=== PATIENT | female | born 1965 | race Caucasian/White ===

== ENCOUNTER → 2017-03-14 | Outpatient (REF) | payer OTHER ==
[2017-03-14 13:05] LABS: POTASSIUM SERUM 4.1 MEQ/L (3.5-5.1)
== END ==
LOC: M LAB REF 12:20
PROVIDERS: ATTEND Nurse Practitioner Family
DX: L70.0 Acne vulgaris (principal)

== ENCOUNTER → 2018-09-21 | Outpatient (CLI) | payer BC | LOC: M WHC 09:52 | DX: Z12.31 Encounter for screening mammogram for malignant neoplasm of breast (principal) | CPT/HCPCS: 77067 ==

== ENCOUNTER → 2018-09-21 | Outpatient (REF) | payer BC ==
[2018-09-23 14:49] LABS: HPV HYBRID CAPTURE II Negative (Negative)
== END ==
LOC: M SFHCWAGY 10:26
DX: Z12.4 Encounter for screening for malignant neoplasm of cervix (principal)
CPT/HCPCS: G0123

== ENCOUNTER → 2019-01-20 | Outpatient (REF) | payer BC | LOC: M SFHCPLAZ 17:31 | PROVIDERS: ATTEND Dermatology | DX: D48.5 Neoplasm of uncertain behavior of skin (principal) ==

== ENCOUNTER → 2019-06-23 | Outpatient (REF) | payer BC ==
[2019-06-23 12:56] LABS: BASO # 0.1 10^3/uL (0.0-0.2); BASO % 0.9 % (0.0-1.0); EOS # 0.1 10^3/uL (0.0-0.50); EOS % 1.8 % (0.0-3.0); HEMOGLOBIN 15.4 g/dl (12.0-15.5); LYMPH # 1.4 10^3/uL (1.5-4.5); LYMPH % 25.3 % (24.0-44.0); MEAN CORPUSCULAR HEMOGLOBIN 34.1 pg (27.0-33.0); MEAN CORPUSCULAR HGB CONC 33.5 g/dl (32.0-36.5); MONO # 0.7 10^3/uL (0.0-0.8); MONO % 11.7 % (0.0-5.0); NEUTROPHILS # 3.4 10^3/uL (1.8-7.7); NEUTROPHILS % 59.9 % (36.0-66.0); PLATELET COUNT, AUTOMATED 235 10^3/uL (150-450); RED BLOOD COUNT 4.51 10^6/uL (4.00-5.40); WHITE BLOOD COUNT 5.7 10^3/uL (4.0-10.0)
[2019-06-23 13:17] LABS: ALBUMIN 3.8 GM/DL (3.2-5.2); BILIRUBIN,TOTAL 0.7 MG/DL (0.2-1.0); CALCIUM LEVEL 9.5 MG/DL (8.5-10.1); CHOLESTEROL RISK RATIO 6.589 (<5); CREATININE FOR GFR 1.1 MG/DL (0.55-1.30); GLOMERULAR FILTRATION RATE 54.9 (>51); POTASSIUM SERUM 4.5 MEQ/L (3.5-5.1); THYROID STIMULATING HORMONE 3.11 uIU/ML (0.358-3.740); TOTAL PROTEIN 6.9 GM/DL (6.4-8.2)
== END ==
LOC: M SFHCADAM 08:02
PROVIDERS: ATTEND Physician Assistant Medical
DX: Z13.0 Encounter for screening for diseases of the blood and blood-forming organs and certain disorders involving the immune mechanism (principal); Z13.220 Encounter for screening for lipoid disorders

== ENCOUNTER → 2019-07-30 | Outpatient (REF) | payer BC ==
[2019-07-30 19:54] LABS: FERRITIN 706 NG/ML (8-252); IRON (FE) 182 UG/DL (50-170); PERCENT SATURATION 44.8 % (13.2-45.0); TOTAL IRON BINDING CAPACITY 406 UG/DL (250-450)
[2019-07-30 20:38] LABS: HEMOGLOBIN A1c 5.6 %
[2019-08-02 10:39] LABS: HEPATITIS B SURFACE ANTIGEN NEGATIVE (NEGATIVE)
[2019-08-02 11:06] LABS: HEPATITIS B CORE ANTIBODY IGM NEGATIVE (NEGATIVE)
[2019-08-02 11:09] LABS: HEPATITIS A ANTIBODY IGM NEGATIVE (NEGATIVE)
== END ==
LOC: M SFHCADAM 14:23
PROVIDERS: ATTEND Physician Assistant Medical
DX: R94.5 Abnormal results of liver function studies (principal); D75.89 Other specified diseases of blood and blood-forming organs; R73.01 Impaired fasting glucose

== ENCOUNTER → 2019-08-06 | Outpatient (CLI) | payer BC ==
--- NOTE | 2019-08-06 08:31 | REP ---
Abdominal right upper quadrant ultrasound for elevated liver function tests: There are no comparisons. There is no cholelithiasis, gallbladder wall thickening or pericholecystic fluid. There is no dilatation of the intrahepatic or extrahepatic biliary ducts. The common biliary duct measures 5.4 mm in diameter. The hepatic parenchyma is homogeneous but hyperechoic compatible with steatosis. There are no hepatic masses. The visualized areas of the pancreas are unremarkable. The right kidney measures 10.3 x 6.2 x 4.7 cm and is in the low normal size range. There is no right renal hydronephrosis, calculus, mass or cyst. The abdominal aorta is unremarkable. There is no right upper quadrant ascites. Impression: Hepatic steatosis. No hepatic masses. No ascites. Otherwise, negative abdominal right upper quadrant ultrasound. Electronically Signed by Amadou Hall MD 08/06/2019 08:21 A
== END ==
LOC: M RAD 07:42
PROVIDERS: ATTEND Physician Assistant Medical
DX: R94.5 Abnormal results of liver function studies (principal); I10 Essential (primary) hypertension

== ENCOUNTER → 2019-09-22 | Outpatient (CLI) | payer BC ==
--- NOTE | 2019-09-22 14:55 | REPMRS ---
Patient History The patient states she had a clinical breast exam in 09/2019. Patient is postmenopausal. Family history of colorectal cancer at age 50 or over in mother. Benign radio exam breast specimen, April 24, 2015. Benign localization of breast nodule of the right breast, April 24, 2015. No Hormone Replacement Therapy Digital Woman Screen Mammo: September 22, 2019 - Exam #: [id number] Bilateral CC and MLO view(s) were taken. Technologist: Betzy Verduzco, Technologist Prior study comparison: September 21, 2018, bilateral digital woman screen mammo performed at [facility]. September 19, 2017, digital woman screen mammo performed at [facility]. April 25, 2016, digital woman screen mammo performed at [facility]. FINDINGS: There are scattered fibroglandular densities. There has been no change in the appearance of the mammogram from the prior studies. There is a mild amount of scattered fibroglandular density which is fairly symmetric. There is no interval development of dominant mass, architectural distortion, or grouped microcalcification suggestive of malignancy. 3-D tomosynthesis shows no additional findings. Assessment: BI-RADS/ACR category 1 mammogram. Negative Mammogram. Recommendation Routine screening mammogram of both breasts in 1 year (for women over age 40). This patient's Lifetime Breast Cancer Risk is estimated at 9.0 %. This mammogram was interpreted with the aid of an FDA-approved computer-aided dectection system. Electronically Signed By: Kang Camejo MD 09/22/19 [id number]
== END ==
LOC: M WHC 10:59
PROVIDERS: ATTEND Nurse Practitioner Family
DX: Z12.31 Encounter for screening mammogram for malignant neoplasm of breast (principal); Z78.0 Asymptomatic menopausal state; Z80.0 Family history of malignant neoplasm of digestive organs

== ENCOUNTER → 2020-09-01 | Outpatient (CLI) | payer BC ==
[~2020-09-01] MED LIST: LISI-542; PARO5TAB; PRIL20TA2 PO; SPIR50TA4
== END ==
LOC: M LABSMTC 10:34
PROVIDERS: ATTEND Anesthesiology
DX: Z01.812 Encounter for preprocedural laboratory examination (principal); Z20.828 Contact with and (suspected) exposure to other viral communicable diseases
CPT/HCPCS: C9803; U0003

== ENCOUNTER 2020-09-06 08:06 | Day surgery (SDC) | payer BC ==
[~2020-09-06] VITALS: Ht 152.4 cm; Wt 68.9 kg
[~2020-09-06 08:06] MED LIST changes: +NS 1,000 ML IV ONE
[2020-09-06] MEDS ORDERED: propofoL 500 MG/50 ML VIAL As Ordered ONE (09:03)
[2020-09-06] MEDS ORDERED: LIDOCAINE 2% 100MG/5ML SDV (FOR ANES.) As Ordered ONE (09:03)
--- NOTE | 2020-09-06 09:25 | ROOR ---
Patient Name: Mehnaz Johnson Procedure Date: 09/06/2020 8:56 AM Date of : 1965 Age: 55 Room: OP02 Gender: Female Note Status: Finalized Procedure: Total Colonoscopy to Cecum + Biopsy Polypectomy Indications: Screening for colorectal malignant neoplasm Providers: Doron Gatica MD Referring MD: Александр Valdez Requesting Provider: Medicines: Monitored Anesthesia Care Complications: No immediate complications. Procedure: Pre-Anesthesia Assessment: - The heart rate, respiratory rate, oxygen saturations, blood pressure, adequacy of pulmonary ventilation, and response to care were monitored throughout the procedure. The Colonoscope was introduced through the anus and advanced to the cecum, identified by appendiceal orifice and ileocecal valve. The colonoscopy was performed without difficulty. The patient tolerated the procedure well. The quality of the bowel preparation was excellent. Findings: The perianal and digital rectal examinations were normal. Non-bleeding internal hemorrhoids were found during retroflexion. The hemorrhoids were small and Grade I (internal hemorrhoids that do not prolapse). Scattered small-mouthed diverticula were found in the recto-sigmoid colon, sigmoid colon and descending colon. A diminutive polyp was found in the rectum. The polyp was flat. The polyp was removed with a cold biopsy forceps. Resection and retrieval were complete. The exam was otherwise without abnormality on direct and retroflexion views. The terminal ileum appeared normal. Impression: - Non-bleeding internal hemorrhoids. - Diverticulosis in the recto-sigmoid colon, in the sigmoid colon and in the descending colon. - One diminutive polyp in the rectum, removed with a cold biopsy forceps. Resected and retrieved. - The examination was otherwise normal on direct and retroflexion views. - The examined portion of the ileum was normal. - The exam was otherwise normal to the cecum. Recommendation: - Patient has a contact number available for emergencies. The signs and symptoms of potential delayed complications were discussed with the patient. Return to normal activities tomorrow. Written discharge instructions were provided to the patient. - High fiber diet. - Discharge patient to home. - Continue present medications. - Await pathology results. - Telephone GI clinic for pathology results in 1 week. - Repeat colonoscopy in 10 years for screening purposes. - Return to referring physician. - The findings and recommendations were discussed with the patient. Doron Gatica MD Doron Gatica MD 09/06/2020 9:24:55 AM Electronically signed by Doron Gatica MD Number of Addenda: 0 Note Initiated On: 09/06/2020 8:56 AM Estimated Blood Loss: Estimated blood loss: none.
[2020-09-06 09:49] VITALS: BP 134/78
== END 2020-09-06 09:52 | disposition home or self-care (01) ==
LOC: M OPP 08:06
PROVIDERS: ATTEND Internal Medicine Gastroenterology
DX: Z12.11 Encounter for screening for malignant neoplasm of colon (principal); K64.0 First degree hemorrhoids; K57.90 Diverticulosis of intestine, part unspecified, without perforation or abscess without bleeding; K62.1 Rectal polyp

== ENCOUNTER → 2020-09-07 | Outpatient (CLI) | payer BC ==
[~2020-09-07] MED LIST changes: -NS 1,000 ML IV ONE
--- NOTE | 2020-09-08 08:15 | ECGEPIP ---
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
== END ==
LOC: M EKG 10:11
PROVIDERS: ATTEND Orthopaedic Surgery
DX: Z11.59 Encounter for screening for other viral diseases (principal)

== ENCOUNTER → 2020-09-09 | Outpatient (CLI) | payer BC | LOC: M LABSMTC 09:16 | PROVIDERS: ATTEND Orthopaedic Surgery | DX: Z01.812 Encounter for preprocedural laboratory examination (principal); Z20.828 Contact with and (suspected) exposure to other viral communicable diseases ==

== ENCOUNTER → 2020-09-27 | Outpatient (CLI) | payer BC ==
--- NOTE | 2020-09-27 12:25 | REPMRS ---
Patient History The patient states she had a clinical breast exam in 2019. Patient is postmenopausal and is nulliparous. Family history of colorectal cancer at age 50 or over in mother. Benign radio exam breast specimen, April 24, 2015. Benign localization of breast nodule of the right breast, April 24, 2015. No Hormone Replacement Therapy Digital Woman Screen Mammo: September 27, 2020 - Exam #: [id number] Bilateral CC and MLO view(s) were taken. Technologist: Romy Lr, Technologist Prior study comparison: September 22, 2019, bilateral digital woman screen mammo performed at [facility]. September 21, 2018, bilateral digital woman screen mammo performed at [facility]. September 19, 2017, digital woman screen mammo performed at [facility]. FINDINGS: The breast tissue is almost entirely fat. The Volpara volumetric breast density category is: A. There has been no change in the appearance of the mammogram from the prior studies. There is no interval development of dominant mass, architectural distortion, or grouped microcalcification typical of malignancy. 3-D tomosynthesis shows no additional findings. Assessment: BI-RADS/ACR category 1 mammogram. Negative Mammogram. Recommendation Routine screening mammogram of both breasts in 1 year (for women over age 40). This patient's Lifetime Breast Cancer RIsk is estimated at 10.7 %. This mammogram was interpreted with the aid of an FDA-approved computer-aided dectection system. Electronically Signed By: Kang Camejo MD 09/27/20 [id number]
== END ==
LOC: M WHC 11:05
PROVIDERS: ATTEND Nurse Practitioner Family
DX: Z12.31 Encounter for screening mammogram for malignant neoplasm of breast (principal)

== ENCOUNTER → 2020-10-14 | Outpatient (CLI) | payer BC | LOC: M LABSMTC 10:56 | PROVIDERS: ATTEND Orthopaedic Surgery | DX: Z20.828 Contact with and (suspected) exposure to other viral communicable diseases (principal) ==

== ENCOUNTER → 2021-10-23 | Outpatient (CLI) | payer BC ==
[~2021-10-23] MED LIST changes: -LISI-542; +LISI-898
--- NOTE | 2021-10-23 15:37 | REPMRS ---
Patient History The patient states she has not had a clinical breast exam in over a year. Patient is postmenopausal and is nulliparous. Family history of colorectal cancer at age 50 or over in mother, prostate cancer at age 64 in brother. Benign radio exam breast specimen, April 24, 2015. Benign localization of breast nodule of the right breast, April 24, 2015. No Hormone Replacement Therapy Patient states no breast complaints today. Patient has signed MRS History Sheet. Digital Woman Screen Mammo: October 23, 2021 - Exam #: [id number] Bilateral CC and MLO view(s) were taken. Technologist: RT Davon Prior study comparison: September 27, 2020, bilateral digital woman screen mammo performed at [facility]. September 22, 2019, bilateral digital woman screen mammo performed at [facility]. FINDINGS: There are scattered fibroglandular densities. Screening. Digital screening (2D) mammography was performed bilaterally in the CC and MLO projections. Additionally, breast tomosynthesis (3D mammography) was performed bilaterally in the CC and MLO projections. Todays exam was compared to the prior exam/exams. By history, the patient has no complaints of a palpable breast abnormality or other significant breast complaints. The Volpara volumetric breast density category is B, there are scattered areas of fibroglandular densities. The breasts are unchanged in size and shape. There are no vibha-soft tissue densities or spiculated masses. There is no internal architectural distortion. There are no suspicious vibha-calcific clusters. Skin thickening or nipple retraction is not present. IMPRESSION: BI-RADS Category 2- Benign Findings. There is no evidence of malignant alteration of the breasts. Followup examination recommended in one year. This mammogram was read with the assistance of [facility],an FDA approved computer aided detection system for mammography. The lifetime Tyrer-Cuzick score is 10.4% Negative x-ray reports should not delay surgical consultation if a dominant or clinically suspicious mass is present. Not all breast cancers can be identified by mammography. Therefore, we recommend that you continue to perform regular breast self-examination and physical examination and then promptly contact your physician of any concerns or changes. Adenosis and dense breasts may obscure an underlying neoplasm. No significant changes when compared with prior studies. Assessment: BI-RADS/ACR category 2 mammogram. Benign Findings. Recommendation Routine screening mammogram of both breasts in 1 year. Electronically Signed By: Dany Bowden MD 10/23/21 0357
== END ==
LOC: M WHC 13:10
PROVIDERS: ATTEND Nurse Practitioner Women's Health
DX: Z12.31 Encounter for screening mammogram for malignant neoplasm of breast (principal); Z80.0 Family history of malignant neoplasm of digestive organs; Z80.42 Family history of malignant neoplasm of prostate

== ENCOUNTER → 2021-11-01 | Outpatient (REF) | payer BC ==
[~2021-11-01] MED LIST changes: -LISI-898; +LISI5TAB11
== END ==
LOC: M SFHCWAGY 17:33
PROVIDERS: ATTEND Nurse Practitioner Women's Health
DX: Z12.4 Encounter for screening for malignant neoplasm of cervix (principal); N92.5 Other specified irregular menstruation
CPT/HCPCS: 87624; G0123

== ENCOUNTER → 2023-02-24 | Outpatient (CLI) | payer BC, MEDICAID, OTHER | LOC: M WHC 07:23 | PROVIDERS: ATTEND Nurse Practitioner Family | DX: Z12.31 Encounter for screening mammogram for malignant neoplasm of breast (principal) ==

== ENCOUNTER → 2023-02-24 | Outpatient (REF) | payer MEDICAID, OTHER | LOC: M SFHCWAGY 12:52 | PROVIDERS: ATTEND Nurse Practitioner Family | DX: Z12.4 Encounter for screening for malignant neoplasm of cervix (principal); N95.2 Postmenopausal atrophic vaginitis ==

== ENCOUNTER → 2023-02-27 | Outpatient (REF) | payer MEDICAID, OTHER | LOC: M PLALAB 17:16 | PROVIDERS: ATTEND Nurse Practitioner Family | DX: L29.2 Pruritus vulvae (principal); L57.0 Actinic keratosis ==

== ENCOUNTER → 2023-02-27 | Outpatient (REF) | payer MEDICAID | LOC: M SFHCWAGY 10:31 | PROVIDERS: ATTEND Nurse Practitioner Family | DX: L29.2 Pruritus vulvae (principal); Z53.9 Procedure and treatment not carried out, unspecified reason ==

== ENCOUNTER → 2024-02-12 | Outpatient (CLI) | payer OTHER ==
[~2024-02-12] MED LIST changes: +PROHANCE 279.3MG/ML 15ML VIAL ONE; +SIMV40TA20 PO
== END ==
LOC: M PLAIMG 09:23
PROVIDERS: ATTEND Nurse Practitioner Family
DX: M25.551 Pain in right hip (principal); M87.051 Idiopathic aseptic necrosis of right femur; M87.052 Idiopathic aseptic necrosis of left femur
CPT/HCPCS: 73723; A9576

== ENCOUNTER → 2024-02-23 | Outpatient (REF) | payer OTHER, MEDICAID ==
[~2024-02-23] MED LIST changes: -PROHANCE 279.3MG/ML 15ML VIAL ONE
[2024-02-23 12:37] LABS: BASO # 0.1 10^3/uL (0.0-0.2); BASO % 0.9 % (0.0-1.0); EOS # 0.2 10^3/uL (0.0-0.5); EOS % 2.6 % (0.0-3.0); HEMATOCRIT 43.3 % (36.0-47.0); HEMOGLOBIN 14.4 g/dl (12.0-15.5); LYMPH # 2.1 10^3/uL (1.5-5.0); LYMPH % 31.1 % (24.0-44.0); MEAN CORPUSCULAR HEMOGLOBIN 33.8 pg (27.0-33.0); MEAN CORPUSCULAR HGB CONC 33.3 g/dl (32.0-36.5); MEAN CORPUSCULAR VOLUME 101.6 fl (80.0-96.0); MONO # 0.5 10^3/uL (0.0-0.8); NEUTROPHILS # 3.8 10^3/uL (1.5-8.5); NEUTROPHILS % 57.2 % (36.0-66.0); PLATELET COUNT, AUTOMATED 261 10^3/uL (150-450); RED BLOOD COUNT 4.26 10^6/uL (4.00-5.40); WHITE BLOOD COUNT 6.6 10^3/uL (4.0-10.0)
[2024-02-23 13:02] LABS: HEMOGLOBIN A1c 4.8 % (4.0-6.0)
[2024-02-23 13:07] LABS: ALBUMIN 3.6 G/DL (3.2-5.2); ALKALINE PHOSPHATASE 72 U/L (46-116); ALT/SGPT 29 U/L (7.0-40); AST/SGOT 32 U/L (<34); BILIRUBIN,TOTAL 1.1 MG/DL (0.3-1.2); BLOOD UREA NITROGEN 16 MG/DL (9-23); CALCIUM LEVEL 9.7 MG/DL (8.3-10.6); CARBON DIOXIDE LEVEL 30 MMOL/L (20-31); CHLORIDE LEVEL 101 MMOL/L (98-107); CHOLESTEROL LEVEL 186 MG/DL (<200); CHOLESTEROL RISK RATIO 2.21 (<5); GLOMERULAR FILTRATION RATE > 60.0 (>45); GLUCOSE, FASTING 97 MG/DL (74-106); LDL CHOLESTEROL 52.4 MG/DL (<100); POTASSIUM SERUM 4.4 MMOL/L (3.5-5.1); SODIUM LEVEL 141 MMOL/L (136-145); TOTAL PROTEIN 6.5 G/DL (5.7-8.2); TRIGLYCERIDES LEVEL 248 MG/DL (<150)
== END ==
LOC: M LABDRWAD 12:23
PROVIDERS: ATTEND Nurse Practitioner Family
DX: E78.00 Pure hypercholesterolemia, unspecified (principal)

== ENCOUNTER → 2024-03-09 | Outpatient (REF) | payer OTHER, MEDICAID ==
[2024-03-09 14:02] LABS: BASO # 0.1 10^3/uL (0.0-0.2); EOS # 0.1 10^3/uL (0.0-0.5); EOS % 1.8 % (0.0-3.0); HEMATOCRIT 42.4 % (36.0-47.0); HEMOGLOBIN 14.4 g/dl (12.0-15.5); LYMPH # 1.7 10^3/uL (1.5-5.0); LYMPH % 22.3 % (24.0-44.0); MEAN CORPUSCULAR HEMOGLOBIN 34.6 pg (27.0-33.0); MEAN CORPUSCULAR VOLUME 101.9 fl (80.0-96.0); MONO # 0.7 10^3/uL (0.0-0.8); MONO % 8.9 % (2.0-8.0); NEUTROPHILS # 5.1 10^3/uL (1.5-8.5); NEUTROPHILS % 65.9 % (36.0-66.0); PLATELET COUNT, AUTOMATED 336 10^3/uL (150-450); RED BLOOD COUNT 4.16 10^6/uL (4.00-5.40); WHITE BLOOD COUNT 7.8 10^3/uL (4.0-10.0)
[2024-03-09 14:04] LABS: ALBUMIN 4.1 G/DL (3.2-5.2)
[2024-03-09 14:09] LABS: FERRITIN 147.9 NG/ML (7.3-270.7)
[2024-03-09 14:11] LABS: PERCENT SATURATION 34.6 % (13.2-45.0)
== END ==
LOC: M LABDRWAD 13:00
PROVIDERS: ATTEND Orthopaedic Surgery
DX: M16.9 Osteoarthritis of hip, unspecified (principal); M25.551 Pain in right hip

== ENCOUNTER → 2024-03-17 | Outpatient (CLI) | payer OTHER ==
[2024-03-17 14:56] LABS: BASO # 0.1 10^3/uL (0.0-0.2); BASO % 0.6 % (0.0-1.0); EOS # 0.1 10^3/uL (0.0-0.5); EOS % 1.1 % (0.0-3.0); HEMATOCRIT 40.7 % (36.0-47.0); HEMOGLOBIN 13.5 g/dl (12.0-15.5); LYMPH # 1.6 10^3/uL (1.5-5.0); MEAN CORPUSCULAR HEMOGLOBIN 33.3 pg (27.0-33.0); MEAN CORPUSCULAR HGB CONC 33.2 g/dl (32.0-36.5); MEAN CORPUSCULAR VOLUME 100.2 fl (80.0-96.0); MONO # 0.6 10^3/uL (0.0-0.8); MONO % 7.3 % (2.0-8.0); NEUTROPHILS # 5.8 10^3/uL (1.5-8.5); PLATELET COUNT, AUTOMATED 285 10^3/uL (150-450); RED BLOOD COUNT 4.06 10^6/uL (4.00-5.40); WHITE BLOOD COUNT 8.2 10^3/uL (4.0-10.0)
[2024-03-17 15:06] LABS: INR 0.98; PARTIAL THROMBOPLASTIN TIME 23.5 SECONDS (24.8-34.2); PROTHROMBIN TIME 12.7 SECONDS (12.5-14.5)
[2024-03-17 15:23] LABS: ALBUMIN 3.9 G/DL (3.2-5.2); ALKALINE PHOSPHATASE 80 U/L (46-116); ALT/SGPT 30 U/L (7.0-40); AST/SGOT 27 U/L (<34); BILIRUBIN,TOTAL 0.9 MG/DL (0.3-1.2); BLOOD UREA NITROGEN 15 MG/DL (9-23); CALCIUM LEVEL 9.7 MG/DL (8.3-10.6); CARBON DIOXIDE LEVEL 26 MMOL/L (20-31); CHLORIDE LEVEL 97 MMOL/L (98-107); CREATININE FOR GFR 0.84 MG/DL (0.55-1.30); GLOMERULAR FILTRATION RATE > 60.0 (>45); GLUCOSE, FASTING 86 MG/DL (74-106); SODIUM LEVEL 135 MMOL/L (136-145); TOTAL PROTEIN 6.6 G/DL (5.7-8.2)
== END ==
LOC: M EKG 13:28
PROVIDERS: ATTEND Nurse Practitioner Family
DX: M87.059 Idiopathic aseptic necrosis of unspecified femur (principal)

== ENCOUNTER → 2024-03-22 | Outpatient (CLI) | payer OTHER | LOC: M WHC 08:12 | PROVIDERS: ATTEND Nurse Practitioner Family | DX: Z12.31 Encounter for screening mammogram for malignant neoplasm of breast (principal) ==

== ENCOUNTER → 2024-09-01 | Outpatient (REF) | payer OTHER ==
[2024-09-01 16:04] LABS: BASO % 0.7 % (0.0-1.0); EOS # 0.1 10^3/uL (0.0-0.5); EOS % 1.8 % (0.0-3.0); HEMATOCRIT 41.5 % (36.0-47.0); HEMOGLOBIN 13.6 g/dl (12.0-15.5); LYMPH # 1.4 10^3/uL (1.5-5.0); LYMPH % 25.5 % (24.0-44.0); MEAN CORPUSCULAR HEMOGLOBIN 32.7 pg (27.0-33.0); MEAN CORPUSCULAR HGB CONC 32.8 g/dl (32.0-36.5); MEAN CORPUSCULAR VOLUME 99.8 fl (80.0-96.0); MONO # 0.5 10^3/uL (0.0-0.8); MONO % 9.3 % (2.0-8.0); NEUTROPHILS # 3.4 10^3/uL (1.5-8.5); NEUTROPHILS % 62.3 % (36.0-66.0); PLATELET COUNT, AUTOMATED 252 10^3/uL (150-450); RED BLOOD COUNT 4.16 10^6/uL (4.00-5.40); WHITE BLOOD COUNT 5.5 10^3/uL (4.0-10.0)
[2024-09-01 16:23] LABS: ALBUMIN 3.6 G/DL (3.2-5.2); ALKALINE PHOSPHATASE 77 U/L (46-116); ALT/SGPT 32 U/L (7.0-40); AST/SGOT 35 U/L (<34); BILIRUBIN,TOTAL 1.2 MG/DL (0.3-1.2); BLOOD UREA NITROGEN 16 MG/DL (9-23); CALCIUM LEVEL 9.5 MG/DL (8.3-10.6); CARBON DIOXIDE LEVEL 28 MMOL/L (20-31); CHLORIDE LEVEL 106 MMOL/L (98-107); CHOLESTEROL LEVEL 187 MG/DL (<200); CHOLESTEROL RISK RATIO 2.94 (<5); CREATININE FOR GFR 0.88 MG/DL (0.55-1.30); GLOMERULAR FILTRATION RATE > 60.0 (>45); GLUCOSE, FASTING 96 MG/DL (74-106); HDL CHOLESTEROL 63.6 MG/DL (>40); LDL CHOLESTEROL 73.4 MG/DL (<100); NON-HDL-C 123.4 MG/DL; POTASSIUM SERUM 4.6 MMOL/L (3.5-5.1); SODIUM LEVEL 140 MMOL/L (136-145); TOTAL PROTEIN 6.7 G/DL (5.7-8.2); TRIGLYCERIDES LEVEL 250 MG/DL (<150)
[2024-09-01 16:29] LABS: HEMOGLOBIN A1c 5.3 % (4.0-6.0)
== END ==
LOC: M LABDRWAD 12:47
PROVIDERS: ATTEND Nurse Practitioner Family
DX: Z00.00 Encounter for general adult medical examination without abnormal findings (principal)

== ENCOUNTER → 2025-03-07 | Outpatient (REF) | payer OTHER ==
[2025-03-07 13:36] LABS: BASO % 0.8 % (0.0-1.0); EOS # 0.1 10^3/uL (0.0-0.5); EOS % 1.6 % (0.0-3.0); HEMATOCRIT 36.9 % (36.0-47.0); LYMPH # 1.2 10^3/uL (1.5-5.0); LYMPH % 23.9 % (24.0-44.0); MEAN CORPUSCULAR HEMOGLOBIN 33.6 pg (27.0-33.0); MEAN CORPUSCULAR HGB CONC 32.5 g/dl (32.0-36.5); MEAN CORPUSCULAR VOLUME 103.4 fl (80.0-96.0); MONO # 0.5 10^3/uL (0.0-0.8); MONO % 9.7 % (2.0-8.0); NEUTROPHILS # 3.2 10^3/uL (1.5-8.5); NEUTROPHILS % 63.6 % (36.0-66.0); PLATELET COUNT, AUTOMATED 284 10^3/uL (150-450); RED BLOOD COUNT 3.57 10^6/uL (4.00-5.40); WHITE BLOOD COUNT 5.1 10^3/uL (4.0-10.0)
[2025-03-07 14:08] LABS: ALBUMIN 3.3 G/DL (3.2-5.2); BILIRUBIN,TOTAL 0.7 MG/DL (0.3-1.2); CALCIUM LEVEL 9.1 MG/DL (8.3-10.6); CREATININE FOR GFR 0.84 MG/DL (0.55-1.30); TOTAL PROTEIN 6.1 G/DL (5.7-8.2)
[2025-03-07 14:09] LABS: FREE THYROXINE INDEX 1.7 % (1.3-4.8); T UPTAKE 36.5 % (22.5-37.0); THYROID STIMULATING HORMONE 1.354 uIU/ML (0.55-4.78); THYROXINE (T4) 4.6 UG/DL (4.5-10.9)
== END ==
LOC: M LABDRWAD 12:45
PROVIDERS: ATTEND Nurse Practitioner Family
DX: R53.83 Other fatigue (principal); E78.00 Pure hypercholesterolemia, unspecified

== ENCOUNTER → 2025-03-29 | Outpatient (CLI) | payer OTHER | LOC: M WHC 10:45 | PROVIDERS: ATTEND Nurse Practitioner Family | DX: Z12.31 Encounter for screening mammogram for malignant neoplasm of breast (principal) ==

== ENCOUNTER → 2025-03-29 | Outpatient (REF) | payer OTHER ==
[2025-03-31 15:04] LABS: HPV APTIMA Not Detected (Not Detected)
== END ==
LOC: M SFHCWAGY 13:18
PROVIDERS: ATTEND Nurse Practitioner Family
DX: Z12.4 Encounter for screening for malignant neoplasm of cervix (principal); N95.2 Postmenopausal atrophic vaginitis

== ENCOUNTER 2025-07-23 16:48 | Observation (INO) | payer OTHER ==
[~2025-07-23] VITALS: Ht 152.4 cm; Wt 67.5 kg
[~2025-07-23 16:48] MED LIST changes: -LISI5TAB11; +LISI5TAB11 PO; -PARO5TAB; +PARO5TAB PO
[2025-07-23] MEDS ORDERED: ESTR0.1C5 VG (16:58)
[2025-07-23] MEDS: ONDANSETRON 4MG 2ML VIAL IV ONE (17:28)
[2025-07-23] MEDS: NS (Normal Saline) 0.9% 1,000 ML IV ONE (17:28)
[2025-07-23] MEDS: KETOROLAC 30 MG/ML 1 ML VIAL IV ONE (17:28)
[2025-07-23 17:38] LABS: BASO # 0.0 10^3/uL (0.0-0.2); BASO % 0.3 % (0.0-1.0); EOS # 0.1 10^3/uL (0.0-0.5); EOS % 0.5 % (0.0-3.0); LYMPH # 1.1 10^3/uL (1.5-5.0); LYMPH % 9.1 % (24.0-44.0); MONO # 0.8 10^3/uL (0.0-0.8); MONO % 6.8 % (2.0-8.0); NEUTROPHILS # 9.6 10^3/uL (1.5-8.5); NEUTROPHILS % 82.9 % (36.0-66.0); PLATELET COUNT, AUTOMATED 298 10^3/uL (150-450)
[2025-07-23] MEDS ORDERED: ISOVUE-370 76% 100 ML VIAL As Ordered ONE (17:38)
[2025-07-23 17:47] LABS: ALT/SGPT 18.0 U/L (7.0-40); AST/SGOT 24.0 U/L (<34)
[2025-07-23 18:02] LABS: KETONE, URINE AUTO RFX TRACE mg/dL (NEGATIVE); LEUKOCYTE ESTERASE UR AUTO RFX NEGATIVE (NEGATIVE); MUCUS, URINE RFX SMALL (NEGATIVE); NITRITE, URINE AUTO RFX NEGATIVE (NEGATIVE); RBC, URINE AUTO RFX 0 /HPF (0-3); SQUAM EPITHELIAL CELL UR AURFX 5 /HPF (0-6); WBC, URINE AUTO RFX 1 /HPF (0-3)
[2025-07-23] MEDS: LR 1,000 ML IV SCH (18:55)
[2025-07-23 19:05] LABS: TRIGLYCERIDES LEVEL 274.0 MG/DL (<150)
[2025-07-23 19:23] LABS: CALCIUM LEVEL 10.2 MG/DL (8.3-10.6); CARBON DIOXIDE LEVEL 25.0 MMOL/L (20-31); CHLORIDE LEVEL 99.0 MMOL/L (98-107); CREATININE FOR GFR 0.81 MG/DL (0.55-1.30); GLOMERULAR FILTRATION RATE 82.5 (>45); POTASSIUM SERUM 3.7 MMOL/L (3.5-5.1); SODIUM LEVEL 138.0 MMOL/L (136-145)
[2025-07-23] MEDS ORDERED: MORPHINE 4 MG/ML 1 ML VIAL IV PRN (19:55)
[2025-07-23] MEDS ORDERED: MORPHINE 2 MG/ML 1 ML VIAL IV PRN (19:55)
[2025-07-23] MEDS ORDERED: ACETAMINOPHEN *IV* 1,000 MG in IV 1 EA IV PRN (19:55)
[2025-07-23] MEDS: PANTOPRAZOLE 40MG VIAL IV SCH (20:19)
[2025-07-23] MEDS: THIAMINE 100 MG TAB PO SCH (20:19)
[2025-07-23 21:34] VITALS: BP 161/89; TEMP 98.3; O2SAT 98
[2025-07-23] MEDS ORDERED: [UNRECOGNIZED DRUG - CODE] PO (22:15)
[2025-07-23] MEDS ORDERED: CHOL400T8 PO (22:15)
[2025-07-23] MEDS ORDERED: HOME MED LIST COMPLETE! XX SCH (22:20)
[2025-07-24] VITALS: BP 125/65; TEMP 97.7; O2SAT 96
[2025-07-24 04:00] VITALS: BP 114/56; TEMP 97.8; O2SAT 98
[2025-07-24 07:33] LABS: PLATELET COUNT, AUTOMATED 221 10^3/uL (150-450)
[2025-07-24 08:02] LABS: ALT/SGPT 11.0 U/L (7.0-40); AST/SGOT 17.0 U/L (<34); CALCIUM LEVEL 9.2 MG/DL (8.3-10.6); CARBON DIOXIDE LEVEL 26.0 MMOL/L (20-31); CHLORIDE LEVEL 106.0 MMOL/L (98-107); CREATININE FOR GFR 0.86 MG/DL (0.55-1.30); GLOMERULAR FILTRATION RATE 76.8 (>45); POTASSIUM SERUM 3.8 MMOL/L (3.5-5.1); SODIUM LEVEL 143.0 MMOL/L (136-145)
[2025-07-24] MEDS ORDERED: SIMVASTATIN 40 MG TAB PO SCH ×2 (09:00→21:00)
[2025-07-24] MEDS: FOLIC ACID 1 MG TAB PO SCH (09:04)
[2025-07-24 09:05] VITALS: BP 114/56
[2025-07-24] MEDS: MULTIVITAMINS/MINERALS THERAP 1 TAB PO SCH (09:05)
[2025-07-24] MEDS: SPIRONOLACTONE 50 MG TAB PO SCH (09:05)
[2025-07-24 10:41] VITALS: BP 123/64; TEMP 97.7; O2SAT 98
== END 2025-07-24 11:50 | disposition home or self-care (01) ==
LOC: M ED 16:48 → M ED INP 16:49 → M MS4PR 21:30
PROVIDERS: ADMIT Student in an Organized Health Care Education/Training Program; ATTEND Internal Medicine
DX: K85.21 Alcohol induced acute pancreatitis with uninfected necrosis (principal); K29.00 Acute gastritis without bleeding; F10.10 Alcohol abuse, uncomplicated; K21.9 Gastro-esophageal reflux disease without esophagitis; E78.1 Pure hyperglyceridemia; I10 Essential (primary) hypertension; F39 Unspecified mood [affective] disorder; D72.829 Elevated white blood cell count, unspecified; Z79.899 Other long term (current) drug therapy
CPT/HCPCS: 36415; 74177; 80047; 80048; 80053; 80076; 81001; 83690; 84478; 85025; 85027; 96361; 96374; 96375; 99284; J1885; J2405; J2470; Q9967

== ENCOUNTER → 2025-08-04 | Outpatient (REF) | payer OTHER ==
[~2025-08-04] MED LIST changes: +CHOL400T8 PO; +ESTR0.1C5 VG; +[UNRECOGNIZED DRUG - CODE] PO
[2025-08-04 14:52] LABS: ALT/SGPT 27.0 U/L (7.0-40); AST/SGOT 20.0 U/L (<34); BASO # 0.0 10^3/uL (0.0-0.2); BASO % 0.3 % (0.0-1.0); CALCIUM LEVEL 9.9 MG/DL (8.3-10.6); CARBON DIOXIDE LEVEL 29.0 MMOL/L (20-31); CHLORIDE LEVEL 100.0 MMOL/L (98-107); CHOLESTEROL LEVEL 144.0 MG/DL (<200); CREATININE FOR GFR 0.79 MG/DL (0.55-1.30); EOS # 0.1 10^3/uL (0.0-0.5); EOS % 0.9 % (0.0-3.0); GLOMERULAR FILTRATION RATE 85.1 (>45); LYMPH # 2.3 10^3/uL (1.5-5.0); LYMPH % 26.1 % (24.0-44.0); MONO # 0.6 10^3/uL (0.0-0.8); MONO % 7.2 % (2.0-8.0); NEUTROPHILS # 5.8 10^3/uL (1.5-8.5); NEUTROPHILS % 65.3 % (36.0-66.0); PLATELET COUNT, AUTOMATED 408 10^3/uL (150-450); POTASSIUM SERUM 4.2 MMOL/L (3.5-5.1); SODIUM LEVEL 137.0 MMOL/L (136-145); TRIGLYCERIDES LEVEL 148.0 MG/DL (<150)
== END ==
LOC: M LABDRWAD 14:01
PROVIDERS: ATTEND Nurse Practitioner Family
DX: E78.00 Pure hypercholesterolemia, unspecified (principal)

== ENCOUNTER 2025-08-22 10:22 | Day surgery (SDC) | payer OTHER ==
[~2025-08-22] VITALS: Ht 152.4 cm; Wt 63.5 kg
[2025-08-22] MEDS ORDERED: LIDOCAINE 2% 100 MG/5 ML SDV (FOR ANES.) As Ordered ONE (10:47)
[2025-08-22 11:08] VITALS: TEMP 99
[2025-08-22 11:35] VITALS: BP 118/68; O2SAT 96
== END 2025-08-22 11:37 | disposition home or self-care (01) ==
LOC: M OPP 10:22
PROVIDERS: ATTEND Internal Medicine Gastroenterology
DX: K44.9 Diaphragmatic hernia without obstruction or gangrene (principal); R93.3 Abnormal findings on diagnostic imaging of other parts of digestive tract

== ENCOUNTER → 2025-10-04 | Outpatient (REF) | payer OTHER | LOC: M LABDRWAD 13:12 | PROVIDERS: ATTEND Orthopaedic Surgery | DX: M25.551 Pain in right hip (principal) ==